=== PATIENT | male | born 1990 | race African-American/Black ===

== ENCOUNTER 2023-11-04 20:34 | Emergency (ER) | payer MEDICAID ==
[~2023-11-04] VITALS: Ht 190.5 cm; Wt 70.0 kg
[2023-11-04 21:10] VITALS: BP 115/55; PULSE 64; RESP 14; TEMP 98.2
[2023-11-04] MEDS ORDERED: KETOROLAC 15MG/ML VIAL IM ONE (21:15)
[2023-11-04] MEDS ORDERED: LIDOCAINE 5% PATCH TOP SCH (21:15)
== END 2023-11-04 23:17 | disposition left against medical advice (07) ==
LOC: ER 20:34
DX: M54.2 Cervicalgia (principal); M25.561 Pain in right knee
CPT/HCPCS: 99281